=== PATIENT | male | born 1935 | race Caucasian/White ===

== ENCOUNTER 2020-01-21 14:00 | Inpatient (IN) | payer OTHER ==
[~2020-01-21] VITALS: Ht 180.3 cm; Wt 94.4 kg
[2020-01-21] VITALS (9 sets, daily range): BP systolic 61–141; BP diastolic 32–67
--- NOTE | ~2020-01-21 | EMS ---
[facility] [address] [place] [address] EMS Patient Care Report Name: BONNY HECTOR Room #: REG RACHNA Bauman#: [id number] Admission: 01/21/20 Attend Phys: Discharge: Date of : 34 Report #: [id number] THIS REPORT FOR: //name// Report Transmitted: 01/21/2020 14:53 EMS Care Summary [facility] MED-ACT Incident [id number] @ 01/21/2020 13:10 Incident Location [address] [place] [address] Patient BONNY BROWER Male, 84 Years 1935 Patient Address [address], [place] [address] Patient History Hypertension (HTN),Pacemaker/AICD,Stroke/CVA,Hyperlipidemia,Depression,Atrial Fibrillation,Type 2 Diabetes,Cardiomyopathy,Ventricular Tachycardia, Patient Allergies Simvastatin, Patient Medications Lantus, Midodrine, Lasix, Melatonin, Loperamide, Colace, Lisinopril, Hydrocodone, Nitroglycerin, Metformin, Gabapentin, Alfuzosin, Klor-Con, Carvedilol, Senna, Chief Complaint Hypotension Disposition Transported No Lights/[place] Dispatch Reason Sick Person Transported To [facility] Narrative [facility] [address] [place] [address] EMS Patient Care Report Name: BONNY HECTOR Room #: REG Merna#: [id number] Admission: 01/21/20 Attend Phys: Discharge: Date of : 34 Report #: [id number] Dispatched to the [facility] on a C-3 Sick Patient. Upon arrival we find the patient seated in a chair in his room in care of facility staff and [facility]. The patient appears in no apparent distress. The patient is doing rehabilitation after a lower leg Fx. Staff report that they have been obtaining low blood pressure readings on the patient today. Evidently, the patient has a Hx over the last month of having episodes of hypotension with no real diagnosis. After facility staff reported their findings to the on-call physician he advised them to have the patient transported to the ER for evaluation. The patient has no complaint associated with the hypotension. He is having some discomfort near his tailbone due to a decubitus ulcer. Vitals Assessed, PMH, Physical Exam, EKG Monitoring, the patient is assisted onto the cot and moved to the ambulance for transport. IV Access Obtained with NaCl bolus during transport. The patient's condition remains unchanged and his vital signs are stable with a low BP during transport. Initial Vitals @13:31P: 90,SpO2: 94,FL Suspected: false @13:31P: 73,R: 16,BP: 89/48,Pain: 0/10,GCS: 15,SpO2: 93,Revised Trauma: 11, @PTAP: 80,R: 16,BP: 86/50,Pain: 0/10,GCS: 15,Temp: 98.2F,SpO2: 98,Revised Trauma: 11, @13:42P: 82,R: 16,BP: 76/51,GCS: 15,SpO2: 94,Revised Trauma: 11, Assessments @13:22MENTAL:Person Oriented,Time Oriented,Event Oriented,Place Oriented,SKIN:HEENT:Head/Face: No Abnormalities,Neck/Airway: No Abnormalities,LUNG SOUNDS:ABDOMEN:PELVIS//GI:EXTREMITIES:Left Arm: No Abnormalities,Right Arm: No Abnormalities,Left Leg: No Abnormalities,Right Leg: No Abnormalities,PULSE:Radial: 2+ Normal,NEURO:No Abnormalities, Impression Hypotension Procedures @PTASurgical Mask on PatientResponse: Unchanged@13:34Normal Saline (.9% NaCl) 250cc (18 ga) Site: Forearm-LeftResponse: UnchangedSucceeded Timeline HOTEL OR MOTEL MANAGER,Surgical Mask on Patient,Response: Unchanged HOTEL OR MOTEL MANAGER,BP: 86/50 M,PULSE: 80,RR: 16 R,SPO2: 98 Ox,ETCO2: ,BG: ,PAIN: 0,GCS: 15, 13:09,Call Received 13:09,[place] [address] EMS Patient Care Report Name: BONNY HECTOR Room #: REG [facility].#: [id number] Admission: 01/21/20 Attend Phys: Discharge: Date of : 34 Report #: [id number] 13:10,Dispatched 13:11,En Route 13:20,On Scene 13:21,At Patient 13:31,BP: 89/48 M,PULSE: 73,RR: 16 R,SPO2: 93 Ox,ETCO2: ,BG: ,PAIN: 0,GCS: 15, 13:31,Depart Scene 13:31,BP: / M,PULSE: 90,RR: R,SPO2: 94 Ox,ETCO2: ,BG: ,PAIN: ,GCS: , 13:34,Normal Saline (.9% NaCl) 250cc 18 ga Site: Forearm-Left,Response: UnchangedSucceeded, 13:42,BP: 76/51 M,PULSE: 82,RR: 16 R,SPO2: 94 Ox,ETCO2: ,BG: ,PAIN: ,GCS: 15, 13:49,At Destination 14:14,Call Closed Disclaimer v1.1 Copyright 2020 [email or web address] This EMS Care Summary contains data elements from the applicable legal record (which may be displayed differently). It is designed to provide pertinent information for the following purposes: continuity of care, clinical quality, and state data reporting. The complete legal record is available to ED staff and administrators of the receiving hospital in [employer] Patient Tracker. All data is provided "as is."
[2020-01-21 14:35] LABS: ABSOLUTE NEUTROPHILS 13.3 thou/uL (1.4-8.2); BASOPHILS 0.3 % (0.0-2.0); EOSINOPHILS 0.7 % (0.0-3.0); HEMOGLOBIN 7.5 gm/dL (14.0-18.0); LYMPHOCYTES 3.1 % (24.0-44.0); MCH 27.9 pg (26.0-34.0); MCHC 31.1 g/dL (28.0-37.0); MCV 89.5 fL (80.0-100.0); MONOCYTES 6.1 % (1.0-8.0); PLATELET COUNT 232 thou/uL (150-400); POLYS 89.8 % (36.0-66.0); RBC 2.68 mil/uL (4.50-6.00); RDW 15.4 % (10.5-14.5); WBC 14.8 thou/uL (4.0-11.0)
[2020-01-21 14:43] LABS: CALCIUM 8.4 mg/dL (8.5-10.1); CREATININE 2.1 mg/dL (0.7-1.3); POTASSIUM 5.2 mmol/L (3.5-5.1)
[2020-01-21 14:49] LABS: ALBUMIN 1.6 g/dL (3.4-5.0); TOTAL BILIRUBIN 0.7 mg/dL (0.2-1.0); TOTAL PROTEIN 5.3 g/dL (6.4-8.2)
[2020-01-21] MEDS ORDERED: NON-ASPIRIN325 MG PO (15:09)
[2020-01-21] MEDS ORDERED: VITAMIN C500 M2 PO (15:10)
[2020-01-21] MEDS ORDERED: ALFUZOSIN HCL10 MG PO (15:10)
[2020-01-21] MEDS ORDERED: PROBIOTIC1 EAC7 PO (15:10)
[2020-01-21] MEDS ORDERED: CARVEDILOL25 MG PO (15:11)
[2020-01-21] MEDS ORDERED: COLACE100 MG PO (15:11)
[2020-01-21] MEDS ORDERED: VITAMIN D310 MC4 PO (15:11)
[2020-01-21] MEDS ORDERED: FERRETTS325 MG PO (15:12)
[2020-01-21] MEDS ORDERED: LEXAPRO5 MG PO (15:12)
[2020-01-21] MEDS ORDERED: SUPER THERAVIT1 EACH PO (15:12)
[2020-01-21] MEDS ORDERED: ALLEGRA ALLERGY60 MG PO (15:13)
[2020-01-21] MEDS ORDERED: LASIX 40 MG TAB40 MG PO (15:13)
[2020-01-21] MEDS ORDERED: NEURONTIN100 MG PO ×2 (15:15)
[2020-01-21] MEDS ORDERED: KLOR-CON M2020 MEQ PO (15:16)
[2020-01-21] MEDS ORDERED: LANTUS SUBQ (15:16)
[2020-01-21] MEDS ORDERED: NORCO 7.5-3251 EACH PO (15:16)
[2020-01-21] MEDS ORDERED: LISINOPRIL10 MG PO (15:17)
[2020-01-21] MEDS ORDERED: MELATONIN3 M2 PO (15:18)
[2020-01-21] MEDS ORDERED: MAGNESIUM500 MG PO (15:18)
[2020-01-21] MEDS ORDERED: LOPERAMIDE 2 MG2 M1 PO (15:18)
[2020-01-21] MEDS ORDERED: MIDODRINE HCL 55 M1 PO (15:19)
[2020-01-21] MEDS ORDERED: METFORMIN HCL1000 MG PO (15:19)
[2020-01-21] MEDS ORDERED: NATEGLINIDE120 MG PO (15:20)
[2020-01-21] MEDS ORDERED: MIRALAX119 GM PO (15:24)
[2020-01-21] MEDS ORDERED: NITROSTAT0.4 M1 SUBLING (15:24)
[2020-01-21] MEDS ORDERED: SENNA PLUS TAB1 EACH PO (15:25)
[2020-01-21] MEDS ORDERED: TRIAMCINOLONE A15 G1 TOP (15:25)
[2020-01-21] MEDS ORDERED: ZINC SULFATE220 MG PO (15:26)
[2020-01-21] MEDS ORDERED: VITAMIN B-121000 MC2 PO (15:26)
[2020-01-21 17:05] LABS: INR 2.8; PROTIME 28.4 Seconds (9.3-11.4)
--- NOTE | 2020-01-21 19:48 | NUR ---
PT TRANSFERRED TO CCU FROM ER AT 1730. DENIES PAIN. FLUID BOLUS INFUSING ON ADMIT AND BP IMPROVED FOLLOWING TO 134/44. SPOKE WITH DR PORTILLO AND UPDATED HIM. PT'S SON IN LAW AT BEDSIDE AND UPDATED. BLACK WOUND WITH FOUL SMELL NOTED TO COCCYX. REPORT GIVEN TO FILL PLANT OPERATOR RN.
[2020-01-22 00:14] VITALS: BP 107/27
[2020-01-22 05:03] LABS: CALCIUM 7.2 mg/dL (8.5-10.1); CREATININE 1.7 mg/dL (0.7-1.3); POTASSIUM 4.7 mmol/L (3.5-5.1)
[2020-01-22 05:05] LABS: HEMATOCRIT 22.7 % (42.0-52.0); HEMOGLOBIN 7.4 gm/dL (14.0-18.0); MCH 29.1 pg (26.0-34.0); MCHC 32.4 g/dL (28.0-37.0); MCV 89.8 fL (80.0-100.0); RBC 2.53 mil/uL (4.50-6.00); RDW 14.8 % (10.5-14.5); WBC 11.3 thou/uL (4.0-11.0)
[2020-01-22 05:37] VITALS: BP 87/33
--- NOTE | 2020-01-22 05:58 | NUR ---
Assumed pt care at 1900. Pt is alert and oriented with no sign of distress noted in pt. Pt verbalizes pain to right fractured ankle and sacrum. Decubitus ulcer present in the sacrum. Pain medication requested and administered upon request. Fall precaution in place. Scheduled meds administered to pt. Tolerated PO intake. Repositioning. No acute events overnight. No further needs at this tiime.
[2020-01-22 11:13] LABS: % SATURATION 7 % (20-39); IRON 8 ug/dL (65-175); TIBC 109 ug/dL (250-450)
--- NOTE | 2020-01-22 11:15 | 2DMMODE ---
[facility] [place] [address] [place] [address] 2 D/M-MODE ECHOCARDIOGRAM Name: TAWNYBONNY Room #: 217-P ADM IN M.R.#: [id number] Admission: 01/21/20 Attend Phys: Georgette Woodard MD Discharge: Date of : 34 Report #: [id number] THIS REPORT FOR: cc: Beltran Perez MD, Richard L. MD Santiago, Patrick MD [facility] ~ APPROVED REPORT Study performed: 01/22/2020 10:16:10 EXAM: Comprehensive 2D, Doppler, and color-flow Echocardiogram Patient Location: Bedside Room #: 217 Status: routine BSA: 2.08 HR: 85 bpm BP: 87/33 mmHg Rhythm: Atrial Fibrillation Other Information Study Quality: Good Indications Hypotension Atrial Fibrillation Hx: Cardiomyopathy, AICD, CVA, DM, HLP. 2D Dimensions RVDd: 48.99 mm IVSd: 9.13 (7-11mm) LVOT Diam: 23.24 (18-24mm) LVDd: 55.79 mm PWd: 8.76 (7-11mm) Ascending Ao: 32.39 (22-36mm) LVDs: 37.84 (25-40mm) Aortic Root: 34.52 mm Volumes Left Atrial Volume (Systole) Single Plane 4CH: 126.66 mL Single Plane 2CH: 172.92 mL LA ESV Index: 77.00 mL/m2 Aortic Valve AoV Peak [place].: 1.62 m/s AO Peak Gr.: 10.43 mmHg LVOT Max P.91 mmHg LVOT Max V: 0.85 m/s [facility] [address] [address] 2 D/M-MODE ECHOCARDIOGRAM Name: BONNY HECTOR Room #: 217-P [facility] IN [facility]#: [id number] Admission: 01/21/20 Attend Phys: Niko Montoya Discharge: Date of : 34 Report #: [id number] MARIUSZ Vmax: 2.24 cm2 Pulmonary Valve PV Peak [place].: 0.88 m/s PV Peak Gr.: 3.10 mmHg Tricuspid Valve TR [place].: 2.94 m/s RAP Estimate: 15.00 mmHg TR Peak Gr.: 35.00 mmHg PA Pressure: 50.00 mmHg Left Ventricle The left ventricle is normal size. There is normal left ventricular wall thickness. Left ventricular systolic function is mild to moderately decreased. LVEF is 40-45%. This study is not technically sufficient to allow evaluation of the LV diastolic function due to atrial fibrillation. Right Ventricle Right ventricle is moderate to severely dilated with moderate hypokinesis. Device lead is present in the right ventricle. Atria Severe biatrial enlargement. Aortic Valve The aortic valve is normal in structure; leaflets are mildly thickened and calcified. No aortic regurgitation is present. There is no aortic valvular stenosis. Mitral Valve Moderate mitral regurgitation. Tricuspid Valve The tricuspid valve is normal in structure. Moderate tricuspid regurgitation. Estimated PAP is 45-50mmHg. Pulmonic Valve Pulmonic valve is not well visualized. Great Vessels The aortic root is normal in size. The ascending aorta is normal in size. IVC is dilated and collapses <50% with inspiration. Pericardium There is no pericardial effusion. [facility] [address] [place] [address] 2 D/M-MODE ECHOCARDIOGRAM Name: TAWNYBONNY Harpal Room #: 217-P [facility] IN ..#: [id number] Admission: 01/21/20 Attend Phys: Niko Montoya Discharge: Date of : 34 Report #: [id number] <Conclusion> Normal left ventricular size/wall thickness Ejection fraction 40-45%, mild global hypokinesis with paradoxical septal wall motion Left atrium moderately/severely dilated Right atrium severely dilated Right ventricle, moderately dilated/ moderate hypokinesis Pacer wire detected right ventricle Normal aortic valve structure/function Moderate/central mitral valve insufficiency Mild tricuspid valve insufficiency Pulmonary artery systolic pressure estimated 45-50 mmHg IVC moderately dilated, nonresponsive No pericardial effusion <ELECTRONICALLY SIGNED> By: Hong Conti MD, [facility] 01/22/20 1115 1115 1115 Hong Conti MD, FACC /INF
[2020-01-22 12:01] VITALS: BP 108/46
[2020-01-22 12:44] VITALS: BP 123/63
[2020-01-22 12:52] LABS: PROTIME 30.7 Seconds (9.3-11.4)
--- NOTE | 2020-01-22 17:38 | NUR ---
PT ALERT AND ORIENTED, COOPERATED WITH CARES. WOUND CARE PROVIDED. SURGEON AND WOUND CARE CONSULTED THE SAME. PROFO BOOTS AND AIR LOSS MATTRESS ORDERED. PRN PAIN MEDS WITH PARTIAL RELIEF. DAUGHTER AT BEDSIDE, AND UPDATED ON PT'S PROGRESS AND POC. WAITING FOR CALL BACK FROM SURGEON. PLAN FOR POSSIBLE DEBRIDEMENT IN AM, NPO AFTER MIDNIGHT IF AGREEABLE WITH SURGEON. NO CONCERNS AT THIS TIME. FALL PRECAUTIONS IN PLACE.
[2020-01-22 20:30] VITALS: BP 126/42
--- NOTE | 2020-01-23 03:48 | NUR ---
Assumed pt care at 1900. Pt is alert and oriented. No sign of distress noted. Pt continues to moan and verbalize constant pain. Pain medication administered as appropriate. Assessment completed and documented. Fall precaution in place. Scheduled meds administered to pt, No acute events overnight. Continue to monitor. No further needs at this time.
[2020-01-23 04:07] VITALS: BP 114/95
[2020-01-23 08:41] VITALS: BP 114/52
--- NOTE | 2020-01-23 08:49 | HC ---
[facility] [place] [address] CONSULTATION Name: BONNY HECTOR Room #: 217-P ADM IN M.R.#: [id number] Admission: 01/21/20 Attend Phys: Georgette Woodard MD Discharge: Date of : 34 Report #: [id number] THIS REPORT FOR: cc: Beltran Perez MD, Richard L. MD Althoff,Shaq Mukherjee MD ~ DATE OF SERVICE: 01/21/2020 CHIEF COMPLAINT: Sacral ulcer and surgical wound to the right ankle. HISTORY OF PRESENT ILLNESS: This is an 84-year-old male patient who was admitted with progressive weakness. He has not been eating and drinking, was found to be hypotensive, had been sent to the Emergency Department. He complains of significant pain in his sacral gluteal region related to underlying pressure ulcer. He has had a recent fall with right ankle fracture and subsequent surgical repair at [facility]. The patient's daughter is at the bedside. PAST MEDICAL HISTORY: Positive for atrial fibrillation. He had a fall approximately a week ago, history of hypertension and diabetes. Previous cholecystectomy, recent ankle open reduction and internal fixation, diabetes, history of stroke. SOCIAL HISTORY: Negative for alcohol or tobacco use. FAMILY HISTORY: Noncontributory. MEDICATIONS: Include acetaminophen, probiotic, alfuzosin, ascorbic acid, carvedilol, vitamin D3, Colace, Lexapro, multivitamin, ferrous fumarate, Yuki, Lasix, Neurontin, Klor-Con, Lantus insulin, Zestril, Imodium, magnesium, melatonin, metformin, ProAmatine, sublingual nitroglycerin, nateglinide, senna, MiraLax, triamcinolone, cyanocobalamin, zinc. REVIEW OF SYSTEMS: CONSTITUTIONAL: The patient complains of generalized weakness. Denies focal weakness. EYES: The patient denies visual changes, redness, or drainage. ENT: The patient denies earache, nasal drainage, sore throat. CARDIOVASCULAR: The patient denies chest pain, palpitations or diaphoresis. PULMONARY: The patient denies cough or shortness of breath. GASTROINTESTINAL: The patient denies nausea, vomiting, diarrhea or abdominal pain. ORTHOPEDIC: The patient has some pain in the sacral region as well as the right ankle area. Other systems in a 14-point review of systems are negative. [address] [address] CONSULTATION Name: TAWNYBONNY Room #: 217-P [facility] IN ..#: [id number] Admission: 01/21/20 Attend Phys: Georgette Woodard MD Discharge: Date of : 34 Report #: [id number] PHYSICAL EXAMINATION: VITAL SIGNS: Include temperature 36.1, pulse 83, respiratory rate 18, blood pressure 123/63. GENERAL: This is a chronically ill-appearing male patient who appears to be in jyyl-oi-btsarocs discomfort. HEENT: Head is normocephalic. Nose and throat clear. NECK: Supple. LUNGS: Clear. HEART: Regular, without murmur. ABDOMEN: Soft, nontender. EXTREMITIES: Sacral region demonstrates an unstageable pressure ulcer of the sacral region. We are very close to being able to palpate bone. There is odor, drainage, some necrotic tissue on the surface. Lower extremities demonstrate surgical incision involving the right lateral ankle, lower leg. There is some separation distally, some serosanguineous drainage noted, slight amount of odor, some surrounding erythema. There is an unstageable pressure ulcer of the left lateral ankle with dry stable eschar in place. CLINICAL IMPRESSION: 1. This is an unstageable sacral pressure ulcer that appears to be infected. 2. Unstageable pressure, left lateral ankle. 3. Surgical wound to the right lateral ankle, status post open reduction and internal fixation at [facility]. 4. Hypertension. 5. Atrial fibrillation. 6. Diabetes type 2. 7. Severe protein-calorie malnutrition with albumin 1.6. RECOMMENDATIONS: At this point in time, we will recommend Dakin's moist gauze daily to the sacral ulcer. He will need a low air loss surface, q. 2 hour turning and repositioning. He will need surgical intervention for debridement of the sacral ulcer. After discussing options with family, surgical treatment is elected with Dr. Buckley. We will recommend Betadine to the eschar on the left lateral ankle and Betadine to the surgical incision on the right lateral ankle with Josephine [employer]. He will need heel protectors at all times. The hospitalist will be managing his atrial fibrillation, hypertension and diabetes. He will need aggressive nutritional support to maximize his options for wound healing. I appreciate being asked to see him in consultation. <ELECTRONICALLY SIGNED> By: Shaq Lantigua MD 01/23/20 0849 1642 2216 Shaq Lantigua MD /nt
[2020-01-23 09:57] LABS: HEMATOCRIT 25.6 % (42.0-52.0); HEMOGLOBIN 8.1 gm/dL (14.0-18.0); MCH 28.7 pg (26.0-34.0); MCHC 31.6 g/dL (28.0-37.0); RBC 2.81 mil/uL (4.50-6.00); RDW 15.7 % (10.5-14.5); WBC 9.4 thou/uL (4.0-11.0)
[2020-01-23 09:59] LABS: CALCIUM 8.3 mg/dL (8.5-10.1); CREATININE 1.7 mg/dL (0.7-1.3); POTASSIUM 5.1 mmol/L (3.5-5.1)
[2020-01-23 10:08] LABS: INR 2.5; PROTIME 25.9 Seconds (9.3-11.4)
--- NOTE | 2020-01-23 10:18 | NUR ---
Patient admits with sepsis. Patient admits from [facility]. Patient has been at [facility] admit date 01/03 for acute rehab [facility]. SP with dtr she was tearful. Patient covid positive to move from CCU unit. Dtr tearful unable to visit. She reports unsure of dc plan if plan to return to [facility]. [facility] of COVID positive. They may be able to accept for return if patient with no symptoms and isolation until day 11.casemgt following.
--- NOTE | 2020-01-23 10:43 | NUR ---
ASSUMED CARE PT SHIFT CHANGE. ASSESSMENT CHARTED.MEDS GIVEN PER APR. PT ALERT AND ORIENTED VSS. ON ROOM AIR DENIES SOB. PT COVID POSITIVE. PT TO MOVE TO COVID UNIT. SURGEON PAGED TO CONFIRM IS WOUND DEBRIDEMENT WILL BE PLANNED, SURGEON CONFIRMED FOR 01/23 AND STATED ORDERS WILL BE PUT IN BY END OF DAY. REPORT GIVEN TO ERIKA BAKER. FAMILY NOTIFIED OF TRANSFER. PT LEFT UNIT WTIH ALL BELONGINGS.
--- NOTE | 2020-01-23 12:07 | HC ---
[facility] [place] [address] CONSULTATION Name: BONNY HECTOR Room #: 359-P ADM IN M.R.#: [id number] Admission: 01/21/20 Attend Phys: Georgette Woodard MD Discharge: Date of : 34 Report #: [id number] THIS REPORT FOR: cc: Beltran Perez MD, Richard L. MD Barry, Joseph W. MD ~ DATE OF SERVICE: 01/21/2020 INFECTIOUS DISEASE CONSULTATION ATTENDING PHYSICIAN: Dr. Woodard. REASON FOR EVALUATION: Advanced age, decubitus ulcer, sacrum. HISTORY OF PRESENT ILLNESS: Chart reviewed, patient examined. This is an 84-year-old gentleman who is generally independent, who sustained an injury about a month ago related to fall, had a fracture of his right ankle. This required hospitalization and subsequent stay in a facility and subsequently developed a sacral decubitus ulcer. He does admit to significant pain associated with it. It is not clear to the extent of drainage from his standpoint. He is not appreciate of having fevers or chills. Appetite has been diminished with poor p.o. intake. He was evaluated due to progressive weakness and was found to have hypotension and progressive anemia as well. He denies primary pulmonary-related complaints. He is maintained on room air. He is ____ encephalopathic. ALLERGIES: SIMVASTATIN. CURRENT MEDICATIONS: Include hydrocodone, melatonin, Zosyn, acetaminophen, ondansetron as needed, vancomycin. PAST MEDICAL HISTORY: Diabetes mellitus. He had cardiac dysrhythmias with a pacemaker AICD, AFib, previous stroke, hypertension, diffuse idiopathic sclerosing and hypertrophy. SOCIAL HISTORY: Former smoker, occasional ethanol, no illicit drug use. FAMILY HISTORY: Noncontributory. REVIEW OF SYSTEMS: Otherwise unremarkable with the exception of the above. PHYSICAL EXAMINATION: GENERAL: He is pleasant, alert, cooperative, in gtfa-oq-oybvqxag distress secondary to the pain associated with his sacral wound and manipulation. He appears somewhat chronically ill, undernourished. [address] [address] CONSULTATION Name: TAWNYBONNY Room #: 359-P [facility] IN [facility].#: [id number] Admission: 01/21/20 Attend Phys: Georgette Woodard MD Discharge: Date of : 34 Report #: [id number] VITAL SIGNS: Temperature 97.4, pulse 81, respirations 18, and blood pressure 108/48. SKIN: Warm, dry, no rashes. HEENT: Normocephalic. Extraocular muscles intact. NECK: Supple. LUNGS: Diminished breath sounds. HEART: Irregular. I do not appreciate a murmur. ABDOMEN: Soft, nontender. Sacral site with moderate degree of exudate, some mild devitalized tissue. Minimal odor. At this point, there is no exposed bone appreciated visually or through palpation. Some moderate degree of inflammation noted at the margins superficially. GENITOURINARY AND RECTAL: Deferred. LABORATORY DATA: Initial CBC: White count of 14.8, H and H of 7.5 and 24.0, and platelets of 232. Electrolytes: Sodium 134, potassium 5.2, chloride 101, bicarbonate 24, anion gap of 9, BUN and creatinine of 42 and 2.1. AST of 42, ALT of 35, albumin 1.6. Estimated GFR of 30. Lactic acid 1.4. IMAGING DATA: CT of abdomen and pelvis showed small bilateral pleural effusions, diverticulosis without evidence of diverticulitis, free air and infiltrate throughout the soft tissue surrounding the coccyx concerning for infectious or inflammatory process. No focal fluid collection. Chest x-ray: Cardiomegaly without acute process. Blood cultures sterile thus far. ASSESSMENT AND PLAN: Sacral decubitus ulcer. The patient had recent injury, left him with immobility in setting of fairly pronounced malnutrition as well. We will continue empiric therapy, I think Zosyn and vancomycin is reasonable, adjusted for his renal insufficiency. We will get a culture ____ Surgery should be evaluating as well. Discussed at length with his daughter. Try to encourage p.o. intake. Add incentive spirometry, offload the site with prescribed wound care. <ELECTRONICALLY SIGNED> By: Mello Eason MD 01/23/20 1207 1210 1337 Mello Eason MD /nt
[2020-01-23 15:22] VITALS: BP 150/75
[2020-01-23 17:59] VITALS: BP 106/65; BP 111/60
--- NOTE | 2020-01-23 18:42 | NUR ---
PATIENT TRANSFER FROM CCU AT 1100. A/O X3. TOLERATED ON RA. AFEBRILE. GIVEN ONE UNIT FFP NO REACTION NOTED. WILL HAVE I & D TOMORROW. KEEP MONITOR.
[2020-01-23 19:40] VITALS: BP 114/67
[2020-01-24] VITALS (17 sets, daily range): BP systolic 89–149; BP diastolic 57–132
[2020-01-24 07:14] LABS: INR 1.9; PROTIME 19.3 Seconds (9.3-11.4)
--- NOTE | 2020-01-24 07:17 | NUR ---
BPCI LETTER ISSUED TO PATIENT IN CONJUNCTION WITH ADMISSION PACKET GIVEN BY REGISTRATION
--- NOTE | 2020-01-24 07:18 | NUR ---
PATIENTS CARES WERE ASSUMED AT SHIFT CHANGE. PATIENT WAS ASSESSED AND MED WERE PASSED. PATIENT IS A VERY PLEASENT MAN. NO ISSUES THIS SHIFT. PATIENT WAS ABLE TO SLEEP MOST OF THE SHIFT. THE BED IS IN A LOW AND LOCKED POSITION.
[2020-01-24 07:57] LABS: ALBUMIN 1.6 g/dL (3.4-5.0); CALCIUM 8.7 mg/dL (8.5-10.1); CREATININE 1.2 mg/dL (0.7-1.3); PHOSPHORUS 3.7 mg/dL (2.5-4.9); POTASSIUM 5.7 mmol/L (3.5-5.1)
--- NOTE | 2020-01-24 17:32 | NUR ---
VAT CONSULTED FOR PICC PLACEMENT. RIGHT BASILIC 5FR TL PICC INSERTED TO UPPER BASILIC VEIN. TRIMMED 44CM AND 2CM EXTERNAL. PT TOLERATED WELL. CXR ORDERED TO CONFIRM TIP LOCATION.
--- NOTE | 2020-01-24 18:03 | NUR ---
RADIOLOGY REPORT FOR CXR: PICC TIP OVERLIES DISTAL SVC. RELEASED FOR USE, PER PROTOCOL.
[2020-01-24 18:49] LABS: ABSOLUTE NEUTROPHILS 17.3 thou/uL (1.4-8.2); BASOPHILS 0.1 % (0.0-2.0); LYMPHOCYTES 2.6 % (24.0-44.0); MCH 29.2 pg (26.0-34.0); MCV 91.4 fL (80.0-100.0); MONOCYTES 2.1 % (1.0-8.0); POLYS 95.2 % (36.0-66.0); RDW 16.1 % (10.5-14.5); WBC 18.1 thou/uL (4.0-11.0)
[2020-01-24 18:51] LABS: HEMOGLOBIN 10.2 gm/dL (14.0-18.0); PLATELET COUNT 390 thou/uL (150-400)
[2020-01-24 19:02] LABS: ALBUMIN 1.7 g/dL (3.4-5.0); CALCIUM 9.1 mg/dL (8.5-10.1); CREATININE 1.6 mg/dL (0.7-1.3); TOTAL BILIRUBIN 0.7 mg/dL (0.2-1.0); TOTAL PROTEIN 6.2 g/dL (6.4-8.2)
[2020-01-24 19:04] LABS: TROPONIN-I 1.04 ng/mL (<0.06)
[2020-01-24 19:05] LABS: POTASSIUM 6.4 mmol/L (3.5-5.1)
--- NOTE | 2020-01-24 20:13 | NUR ---
PATIENT WENT TO OR TO HAVE SACRAL DEBRIDEMENT AT 0800 AND BACK TO UNIT AROUD 1015. PATIENT WAS ON NRB AND TEMP NOT ABLE REGISTER. TIRATED 02 TO 2L BY 1200 AND COVERED PATIENT WITH BEAR CONNIE. ARTUR BACK TO 95.9 AT 1500. PATIENT LOOK LIKE VERY PALED. NOTED SOB AND INCREAED 02 NEED TO 5L AT 1700. PAGED DR PORTILLO AND DR LYONS CXR SHOWING WROSE STAT ORDER RECEIVED. CALLED DAUGHTER UPDATED. FACE TIME TO FAMILY. PATIEN A/O X4 WITH CONFUSING.TOLD RN DNR. PATIENT TRNSFERING TO ICU NOW.
[2020-01-24 20:37] LABS: BE(vivo) -12.4 mmol/L (-2 to +3); HCO3 13.3 mmol/L (22.0-26.0); PCO2 29.8 mmHg (35.0-45.0); PO2 61.5 mmHg (80.0-100.0); sO2 88.7 % (92.0-98.0)
[2020-01-24 20:38] LABS: pH 7.267 (7.360-7.450)
--- NOTE | 2020-01-24 20:56 | NUR ---
2030-PT ARRIVED TO UNIT FROM 3W. BEDSIDE REPORT FROM OLIVIA RODRÍGUEZ. DR. PORTILLO AT BEDSIDE. REPEAT LACTIC DRAWN. SPOKE W/DR. GARIBAY, PT'S SON, TOOK DOWN CELL NUMBER TO GIVE TO DR. PORTILLO. 2100-START BIPAP TO EASE WORK OF BREATHING.
[2020-01-25] VITALS (80 sets, daily range): BP systolic 86–124; BP diastolic 49–82
--- NOTE | 2020-01-25 07:50 | NUR ---
Pt TRANSFERRED TO ICU. WILL PLACE ON HOLD AND AWAIT NEW ORDERS WHEN APPROPRIATE
[2020-01-25 08:56] LABS: HEMATOCRIT 29.5 % (42.0-52.0); HEMOGLOBIN 9.1 gm/dL (14.0-18.0); MCH 28.3 pg (26.0-34.0); MCHC 30.8 g/dL (28.0-37.0); RBC 3.21 mil/uL (4.50-6.00); RDW 16.3 % (10.5-14.5); WBC 16.9 thou/uL (4.0-11.0)
[2020-01-25 09:25] LABS: ALBUMIN 2.5 g/dL (3.4-5.0); CALCIUM 8.6 mg/dL (8.5-10.1); CREATININE 1.8 mg/dL (0.7-1.3); TOTAL BILIRUBIN 0.8 mg/dL (0.2-1.0); TOTAL PROTEIN 5.9 g/dL (6.4-8.2)
[2020-01-25 09:31] LABS: POTASSIUM 6.3 mmol/L (3.5-5.1)
[2020-01-25 12:27] LABS: MAGNESIUM 2.7 mg/dL (1.8-2.4); PHOSPHORUS 5.4 mg/dL (2.6-4.7)
--- NOTE | 2020-01-25 15:36 | NUR ---
PT ON BIPAP, SETTINGS UNCHANGED. LUNGS COURSE TO ASCULTATION. AICD TURNED OFF BY [employer] REP. PER DR MCNEILL ORDERS. CRITICAL K+ RELAYED TO DR PORTILLO IN PERSON, ORDERS GIVEN FOR LASIX AND KAYEXALATE ENEMA PER [facility] PROTOCAL. TPN IN PLACE. ISS INCREASED TO MODERATE DOSE PER [facility] POLICY. CLERGY WAS CALLED TO GIVE PT HIS LAST RIGHTS FROM A MANA[employer]. UNABLE TO GIVE PT PO MEDS DUE TO LOW LOC, HIGH BIPAP NEEDS, RISK OF ASPIRATION. LABS, IMAGES, MEDICATIONS REVIEWED. PT AND FAMILY HAVE BEEN UPDATED AND EDUCATED ON PT CONDITION AND POC. PT NOT PROGRESSING TOWARDS POC.
--- NOTE | 2020-01-25 15:46 | NUR ---
SW reviewed chart and spoke with nursing and attending physician. Pt remains in Enhanced Isolation due to COVID-19. Pt is afebrile and requiring bipap/optiflow. Pt is on IV abx. it looks as though pt had been started on TPN. Nurse indicated that that pt is declining and that pt's pacemaker had been deactivated this day. Family discussing goals of care. SW is following to assist as needed with discharge planning.
[2020-01-26] VITALS (47 sets, daily range): BP systolic 90–120; BP diastolic 38–73
[2020-01-26 00:26] LABS: CALCIUM 8.2 mg/dL (8.5-10.1); CREATININE 1.9 mg/dL (0.7-1.3)
[2020-01-26 00:29] LABS: POTASSIUM 6.1 mmol/L (3.5-5.1)
--- NOTE | 2020-01-26 03:03 | NUR ---
PATIENT OPENING EYES TO VOICE, FOLLOWS COMMANDS AND ATTEMPTS TO MOUTH WORDS BUT NO SOUND COMING OUT. A/OX3. L/S COARSE/WHEEZY WITH WEAK NON PRODUCTIVE COUGH. B/S HYPOACTIVE,ABDOMEN ROUND/SOFT. NAJERA INTACT AND FREE FROM KINKS, URINE OUP LESS THAN 10ML PER HOUR, MD AWARE OF WORSENING RENAL FUNCTION- D5W WITH 1 AMP BICARB INFUSING. LACTIC ACID 3.4 AND K+ 6.1. LABS CALLED TO [facility]. NEW ORDERS GIVEN AND IMPLEMENTED. LEVOPHED GTT RESTARTED AT 0300 TO KEEP MAP>65
[2020-01-26 04:57] LABS: BE(vivo) -10.2 mmol/L (-2 to +3); HCO3 19.8 mmol/L (22.0-26.0); PO2 83.5 mmHg (80.0-100.0); sO2 91.7 % (92.0-98.0)
[2020-01-26 04:58] LABS: PCO2 65.4 mmHg (35.0-45.0)
[2020-01-26 06:09] LABS: ALBUMIN 2.3 g/dL (3.4-5.0); CALCIUM 8.1 mg/dL (8.5-10.1); CREATININE 1.9 mg/dL (0.7-1.3); MAGNESIUM 2.8 mg/dL (1.8-2.4); PHOSPHORUS 5.3 mg/dL (2.5-4.9); POTASSIUM 5.7 mmol/L (3.5-5.1); TOTAL BILIRUBIN 0.7 mg/dL (0.2-1.0); TOTAL PROTEIN 5.8 g/dL (6.4-8.2)
--- NOTE | 2020-01-26 10:43 | NUR ---
ASSUMED CARE AT SHIFT CHANGE, NONE RESPONSIVE, AND S/B DR LYONS AND DR GARIBAY. VSS AND AFBRILE. PATIENT's FAMILY IS HERE DAUGHTER AND DR GARIBAY, SPOKE WITH DR GARIBAY ABOUT VISITAION POLICY, HE STATED HE IS AWARE BUT STILL WANTS DAUGHTER AND HIM SELF TO VISIT. BARBARA CHARGE AND NURSING DEPUTY CLERK OF COURT NOTIFIED WELL.
--- NOTE | 2020-01-28 07:54 | EKG ---
[address] [place] [employer] [address] ELECTROCARDIOGRAM REPORT Name: BONNY HECTOR Room #: 244-P [facility] IN ..#: [id number] Admission: 01/21/20 Attend Phys: Georgette Woodard MD Discharge: 01/26/20 Date of : 33 Report #: [id number] [facility] ED Test Date: 2020-01-21 Test Time: 14:17:26 Pat Name: BONNY HECTOR Department: Room: Gender: M Manager Software: CARMEL : 1935 Requested By: Power Alexandra Order Number: [id number] MD: Hong Conti Measurements Intervals [place] Rate: 70 P: AR: QRS: 67 QRSD: 128 T: -33 QT: 418 QTc: 452 Interpretive Statements Atrial fibrillation Ventricular premature complex Right bundle branch block Baseline wander in lead(s) V6 No previous ECG available for comparison Electronically Signed On 01-22-2020 7:21:15 TUBE MAKING MACHINE OPERATOR by Hong Conti [email or web address] <ELECTRONICALLY SIGNED> By: Hong Conti MD, [facility] 01/22/20 0721 D: 12/1416 16 Hong Conti MD, FACC /EPI
--- NOTE | 2020-01-28 18:06 | PATH ---
[facility] [address] [place] [address] PATHOLOGY RPT PROCEDURE Name: TAWNYBONNY Room #: 244-P [facility] IN M.R.#: [id number] Admission: 01/21/20 Date of : 33 Discharge: 01/26/20 Report #: [id number] Path Case #: [id number] [facility] Accession Number: [id number] . 01 Material submitted: . sacrum - SACRAL WOUND TISSUE . 01 Clinician provided ICD-10: A41.9 E43 . 01 Clinical history: . HYPOTENSION, DECUBITUS, ANEMIA SACRAL ULCER . 02 Diagnosis: Sacral wound tissue: - Skin and subcutaneous tissue associated with marked acute inflammation, abscess formation, as well as fibrinoid degeneration, history of decubitus ulcer. (IUV:lumber tripper; 01/28/2020) MBR 01/28/2020 1253 Local . 02 Electronically signed: . Patricia Singh MD, Pathologist NPI- [id number] . 01 Gross description: . The specimen is received in formalin, labeled "Bonny Stern, sacral tissue" and consists of a necrotic ulcerated segment of pink-rosado to green skin and underlying tissue measuring 5.8 x 4.0 x 3.5 cm. Secure Software Assessor tissue is submitted in A1. (SDY; 01/25/2020) SYU/SYU 01/25/2020 1108 Local . 02 Pathologist provided ICD-10: L98.9, L02.212 . 02 CPT . 047487 Specimen Comment: A courtesy copy of this report has been sent to [phone] Specimen Comment: [phone], Specimen Comment: Report sent to ,DR MOORE / DR GARIBAY Performed at: 01 [facility] [address], [place], [place] [id number] [address] [address] PATHOLOGY RPT PROCEDURE Name: BONNY STERN Room #: 244-P [facility] IN M.R.#: [id number] Admission: 01/21/20 Date of : 33 Discharge: 01/26/20 Report #: [id number] Path Case #: [id number] MD Benny Topete MD Phone: [phone] Performed at: [address] [place], [place] [id number] MD Patricia Singh MD Phone: [phone]
== END 2020-01-26 12:03 | DRG 853 ==
LOC: ER 14:00 → 2N 17:04 → ER 17:04 → 2N 17:09 → 3W 01-23 10:40 → ICU 01-24 20:44
PROVIDERS: Internal Medicine; Nurse Practitioner; Nurse Practitioner Adult Health; Pediatrics; Physician Assistant; ADMIT Hospitalist; ATTEND Hospitalist
PROC: 30233N1 Transfusion of Nonautologous Red Blood Cells into Peripheral Vein, Percutaneous Approach (ICD-10-PCS; principal; 2020-01-21)
PROC: XW13325 Transfusion of Convalescent Plasma (Nonautologous) into Peripheral Vein, Percutaneous Approach, New Technology Group 5 (ICD-10-PCS; 2020-01-23)
PROC: 4B02XSZ Measurement of Cardiac Pacemaker, External Approach (ICD-10-PCS; 2020-01-23)
PROC: 5A09457 Assistance with Respiratory Ventilation, 24-96 Consecutive Hours, Continuous Positive Airway Pressure (ICD-10-PCS; 2020-01-24)
PROC: 0QB10ZZ Excision of Sacrum, Open Approach (ICD-10-PCS; 2020-01-24)
PROC: 02HV33Z Insertion of Infusion Device into Superior Vena Cava, Percutaneous Approach (ICD-10-PCS; 2020-01-24)
DX: A41.9 Sepsis, unspecified organism (principal); L89.154 Pressure ulcer of sacral region, stage 4; E43 Unspecified severe protein-calorie malnutrition; U07.1 COVID-19; R65.21 Severe sepsis with septic shock; J12.89 Other viral pneumonia; I48.20 Chronic atrial fibrillation, unspecified; N17.9 Acute kidney failure, unspecified; E87.1 Hypo-osmolality and hyponatremia; I42.9 Cardiomyopathy, unspecified; M31.9 Necrotizing vasculopathy, unspecified; K92.2 Gastrointestinal hemorrhage, unspecified; L03.312 Cellulitis of back [any part except buttock and flank]; R57.1 Hypovolemic shock; I95.9 Hypotension, unspecified; D63.8 Anemia in other chronic diseases classified elsewhere; I10 Essential (primary) hypertension; L89.520 Pressure ulcer of left ankle, unstageable; E87.5 Hyperkalemia; Z51.5 Encounter for palliative care; E11.9 Type 2 diabetes mellitus without complications; Z66 Do not resuscitate; Z95.0 Presence of cardiac pacemaker; Z86.73 Personal history of transient ischemic attack (TIA), and cerebral infarction without residual deficits; Z87.891 Personal history of nicotine dependence; Z90.49 Acquired absence of other specified parts of digestive tract; Z88.8 Allergy status to other drugs, medicaments and biological substances; Z68.29 Body mass index [BMI] 29.0-29.9, adult; Z86.010 Personal history of colon polyps; Z87.81 Personal history of (healed) traumatic fracture
CPT/HCPCS: 10078; 10081; 10879; 27000; 50101; 50386; 50403; 57119; 57120; 62110; 62900